=== PATIENT | female | born 1995 | race Caucasian/White ===

== ENCOUNTER 2017-08-01 08:08 | Emergency (ER) | payer SELFPAY ==
[~2017-08-01] VITALS: Ht 167.6 cm; Wt 49.9 kg
[~2017-08-01 08:08] MED LIST: AMOX500C PO; FLUT9.9S NS; ONDA4TAB10 SL
--- NOTE | 2017-08-01 08:12 | PHYS DOC ---
Past Medical History Past Medical History: No Pertinent History Past Surgical History: Other Additional Past Surgical Histo: 2 vaginal delieveries Alcohol Use: Occasionally Drug Use: None Adult General Chief Complaint Chief Complaint: NAUSEA/VOMITING/DIARRHA HPI HPI Patient is a 21 year old female who presents with nausea vomiting and headache after a fall 2 days ago. She states she was in the shower just slipped and fell, she fell backwards and struck her head on the floor. She denies any loss of consciousness. She states she is in mild headache over that area and she's vomited a few times. She denies any midline neck pain. She states she's used some Advil for pain because back within an hour of taking it. Review of Systems Review of Systems Constitutional: Denies fever or chills [] Eyes: Denies change in visual acuity, redness, or eye pain [] HENT: Denies nasal congestion or sore throat [] Respiratory: Denies cough or shortness of breath [] Cardiovascular: No additional information not addressed in HPI [] GI: Denies abdominal pain, nausea, vomiting, bloody stools or diarrhea [] : Denies dysuria or hematuria [] Musculoskeletal: Denies back pain or joint pain [] Integument: Denies rash or skin lesions [] Neurologic: Positive for headache, Denies focal weakness or sensory changes [] Endocrine: Denies polyuria or polydipsia [] All other systems were reviewed and found to be within normal limits, except as documented in this note. Current Medications Current Medications Current Medications Medications (Trade) Dose Ordered Sig/Noreen Start Time Stop Time Status Last Admin Dose Admin Acetaminophen (Tylenol) 1,000 mg 1X ONCE 08/01/17 08:30 08/01/17 08:31 DC 08/01/17 08:56 1,000 MG Allergies Allergies Allergies Coded Allergies Type Severity Reaction Last Updated Verified pseudoephedrine Allergy Intermediate RASH 06/22/17 Yes Physical Exam Physical Exam Constitutional: Well developed, well nourished, no acute distress, non-toxic appearance. [] HENT: Normocephalic, bilateral external ears normal, oropharynx moist, no oral exudates, nose normal. Cephalhematoma appreciated in the right posterior parietal region. Eyes: PERRLA, EOMI, conjunctiva normal, no discharge. [] Neck: Normal range of motion, no midline tenderness, tender palpation in the right paraspinal area, supple, no stridor. [] Cardiovascular:Heart rate regular rhythm, no murmur [] Lungs & Thorax: Bilateral breath sounds clear to auscultation [] Abdomen: Bowel sounds normal, soft, no tenderness, no masses, no pulsatile masses. [] Skin: Warm, dry, no erythema, no rash. [] Back: No tenderness, no CVA tenderness. [] Extremities: No tenderness, no cyanosis, no clubbing, ROM intact, no edema. [] Neurologic: Alert and oriented X 3, normal motor function, normal sensory function, no focal deficits noted. [] Psychologic: Affect normal, judgement normal, mood normal. [] Current Patient Data Vital Signs Vital Signs Date Time Temp Pulse Resp B/P (MAP) Pulse Ox O2 Delivery O2 Flow Rate FiO2 08/01/17 08:14 98.4 86 16 100 Room Air 98.4 Lab Values Laboratory Tests Test 08/01/17 08:55 POC Urine HCG, Qualitative Hcg negative (Negative) EKG EKG [] Radiology/Procedures Radiology/Procedures [facility] [address] [place] [address] IMAGING REPORT Signed PATIENT: MILES CRUZ ACCOUNT: [id number] : 1995 LOCATION: ER AGE: 21 SEX: F EXAM STATUS: REG ER ORD. PHYSICIAN: ANA BARRIOS MD REASON: headache after fall PROCEDURE: CT HEAD AND CERVICAL SPINE WO CT head Indication: Headache, blurred vision status post fall and head injury. Technique: CT head without IV contrast Comparison: None Findings: No pathologic extra-axial or intra-axial fluid collection. The ventricles and basal cisterns are within normal limits. No acute intracranial bleed. No midline shift. No focal loss of llanes-white differentiation. The orbits are within normal limits. No calvarial fractures. Visualized paranasal sinuses and mastoid air cells are clear. Impression: No acute intracranial process. CT cervical spine Indication:, Technique: CT of the cervical spine without IV contrast with multi planar reformats. Comparison: None Findings: Cervical spine demonstrates straightening. This could be due to muscle spasm or positioning. No compression deformities. Atlantoaxial joint interval is preserved. No acute fractures. No degenerative disc disease. The facet joints are in normal anatomic alignment. Visualized lungs are clear. Prevertebral soft tissues within normal limits. Impression: No acute fractures. PQRS Compliance Statement: One or more of the following individualized dose reduction techniques were utilized for this examination: 1. Automated exposure control 2. Adjustment of the mA and/or kV according to patient size 3. Use of iterative reconstruction technique DICTATED and SIGNED BY: WENDY HARDY DO DATE: 08/01/17915 CC: ANA BARRIOS MD; NO PCP ~ Impressions: Postconcussive syndrome Course & Med Decision Making Course & Med Decision Making Pertinent Labs and Imaging studies reviewed. (See chart for details) CT head neck negative. Return precautions given. She is agreeable to the plan and being discharged in stable condition. Dragon Disclaimer Dragon Disclaimer This electronic medical record was generated, in whole or in part, using a voice recognition dictation system. Departure Departure Impression: Primary Impression: Post concussion syndrome Disposition: 01 HOME, SELF-CARE Condition: STABLE Referrals: NO PCP (PCP) Patient Instructions: Post-Concussion Syndrome Additional Instructions: The CAT scan of your head and neck did not show anything broken or any bleeding inside her head. Your being discharged home. Your being discharged with Zofran which is an oral dissolvable tablets that he can use as directed for nausea. You 'll also take Tylenol. Please follow the instructions on the bottle that he purchase [id number]. You likely have had a concussion your brain needs a few days to recover. You should call over from [facility] and follow -up with their post concussive clinic. Their phone number is , or you can speak with the concussion applications engineering manager at [phone] and try to schedule an appointment with him. Return the ER if you have severe pain, uncontrolled nausea vomiting, troubles with numbness, weakness in your arms or legs or other concerns. Scripts Ondansetron (ZOFRAN ODT) 4 Mg Tab.rapdis 1 TAB SL Q8HRS, #10 TAB Prov: ANA BARRIOS MD 08/01/17 ANA BARRIOS MD Aug 01, 2017 08:12
[2017-08-01] MEDS ORDERED: ACETAMINOPHEN 500 MG TABLET PO ONE (08:30)
--- NOTE | 2017-08-01 09:26 | RAD ---
CT head Indication: Headache, blurred vision status post fall and head injury. Technique: CT head without IV contrast Comparison: None Findings: No pathologic extra-axial or intra-axial fluid collection. The ventricles and basal cisterns are within normal limits. No acute intracranial bleed. No midline shift. No focal loss of llanes-white differentiation. The orbits are within normal limits. No calvarial fractures. Visualized paranasal sinuses and mastoid air cells are clear. Impression: No acute intracranial process. CT cervical spine Indication:, Technique: CT of the cervical spine without IV contrast with multi planar reformats. Comparison: None Findings: Cervical spine demonstrates straightening. This could be due to muscle spasm or positioning. No compression deformities. Atlantoaxial joint interval is preserved. No acute fractures. No degenerative disc disease. The facet joints are in normal anatomic alignment. Visualized lungs are clear. Prevertebral soft tissues within normal limits. Impression: No acute fractures. PQRS Compliance Statement: One or more of the following individualized dose reduction techniques were utilized for this examination: 1. Automated exposure control 2. Adjustment of the mA and/or kV according to patient size 3. Use of iterative reconstruction technique
[2017-08-01] MEDS ORDERED: ONDA4TAB10 SL (09:41)
[2017-08-01 10:00] VITALS: BP 115/76
== END 2017-08-01 10:00 | disposition home or self-care (01) ==
LOC: ER 08:08
DX: F07.81 Postconcussional syndrome (principal); Z88.8 Allergy status to other drugs, medicaments and biological substances; W18.2XXA Fall in (into) shower or empty bathtub, initial encounter; Y93.E1 Activity, personal bathing and showering; Y92.89 Other specified places as the place of occurrence of the external cause; Y99.8 Other external cause status
CPT/HCPCS: 70450; 72125; 81025; 99284-25

== ENCOUNTER 2019-07-31 22:32 | Emergency (ER) | payer OTHER ==
[~2019-07-31] VITALS: Ht 165.1 cm; Wt 59.0 kg
[~2019-07-31 22:32] MED LIST changes: +ALBU2.5V8 INH; +AZIT250T PO; +PRED50TA PO; +PROM118S5 PO
[2019-07-31 23:02] VITALS: BP 117/77
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
[2019-08-01] MEDS ORDERED: ORPH100T PO (00:57)
[2019-08-01] MEDS ORDERED: TRAM50TA PO (00:57)
[2019-08-01] MEDS ORDERED: DICL50TA4 PO (00:57)
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
== END 2019-08-01 01:17 | disposition home or self-care (01) ==
LOC: ER 22:32
DX: S16.1XXA Strain of muscle, fascia and tendon at neck level, initial encounter (principal); S39.012A Strain of muscle, fascia and tendon of lower back, initial encounter; V49.9XXA Car occupant (driver) (passenger) injured in unspecified traffic accident, initial encounter; Y93.89 Activity, other specified; Y92.488 Other paved roadways as the place of occurrence of the external cause; Y99.8 Other external cause status
CPT/HCPCS: 72040; 72100; 81025; 99284-25